=== PATIENT | female | born 1975 | race Caucasian/White ===

== ENCOUNTER 2017-04-30 22:10 | Emergency (ER) | payer MEDICARE, OTHER ==
[~2017-04-30] VITALS: Ht 149.9 cm; Wt 71.7 kg
[~2017-04-30 22:10] MED LIST: AMOX-423 PO; DOCU-144 PO; FERR-57 PO; HYDR-1189 PO
--- NOTE | 2017-04-30 22:16 | NUR ---
Patient to ER bed 4 to gown for evaluation. Side rails up. Report given to Edgardo VIEIRA.
--- NOTE | 2017-04-30 22:18 | NUR ---
ED ADJUNCT PSYCHOLOGY INSTRUCTOR Bagley at bedside for medical evaluation.
[2017-04-30 22:20] VITALS: BP_SYST 126
--- NOTE | 2017-04-30 22:20 | NUR ---
Patient arrived to ED a/o x 4 with complaint of sore throat x 3 days. Patient reports pain 5/10 with increased pain on swallowing. Patient presents with a low grade fever. Denies N/V. Denies SOB. Reports generalized body aches and feeling tired x 3 days. Does not appear in immediate distress. Daughter at bedside. Will continue to monitor.
--- NOTE | 2017-04-30 22:30 | NUR ---
Medicated per MD orders. IVF infusing with no s/s of infiltration at this time. Will continue to monitor.
[2017-04-30] MEDS ORDERED: ACETAMINOPHEN 500 MG TABLET PO ONE (22:45)
[2017-04-30] MEDS ORDERED: NACL 0.9% 1,000 ML IV ONE (22:45)
[2017-04-30] MEDS ORDERED: KETOROLAC TROMETHAMINE 30 MG VIAL IVP ONE (22:45)
--- NOTE | 2017-04-30 23:00 | NUR ---
Patient resting quietly. No acute distress noted. Vital signs within normal range.
[2017-04-30 23:08] LABS: BILIRUBIN,URINE NEGATIVE (NEGATIVE); BLOOD, URINE NEGATIVE (NEGATIVE); CLARITY/URINE CLEAR (CLEAR); COLOR,URINE YELLOW (YELLOW); GLUCOSE,URINE NEGATIVE (NEGATIVE); KETONES,URINE NEGATIVE (NEGATIVE); LEUKOCYTE ESTERASE ,URINE NEGATIVE (NEGATIVE); NITRITE, URINE NEGATIVE (NEGATIVE); PH,URINE 7.5 (5.0-8.0); PROTEIN URINE NEGATIVE (NEGATIVE); UROBILINOGEN,URINE 0.2 (0.2-1.0)
[2017-04-30] MEDS ORDERED: KETOROLAC TROMETHAMINE 30 MG VIAL ONE (23:08)
[2017-04-30] MEDS ORDERED: ACETAMINOPHEN 500 MG TABLET ONE (23:08)
--- NOTE | 2017-04-30 23:30 | NUR ---
Courtney birmingham in EDM - 05/01/17 at 0527 by [email or web address] ED YOANNA Bagley at bedside for medical evaluation.
--- NOTE | 2017-04-30 23:30 | NUR ---
ED GROUND SUPPORT AGENT Bagley at bedside for patient reassessment.
[2017-04-30 23:31] LABS: BARBITURATE, URINE NEGATIVE (NEG <=200); BENZODIAZEPINE, URINE NEGATIVE (NEG <=150); CANNABINOID, URINE NEGATIVE (NEG <=50); COCAINE, URINE NEGATIVE (NEG <=150); METHAMPHETAMINES SCREEN,URINE NEGATIVE (NEG <=500); OPIATE, URINE NEGATIVE (NEG <=100); PHENCYCLIDINE SCREEN,URINE NEGATIVE (NEG <=25); UR TRICYCLIC ANTIDEPRESSANTS NEGATIVE (NEG <=300); URINE AMPHETAMINE NEGATIVE (NEG <=500); URINE METHADONE NEGATIVE (NEG <=200); URINE OXYCODONE SCREEN NEGATIVE (NEG <=100); URINE PROPOXYPHENE SCREEN NEGATIVE (NEG <=300)
[2017-05-01] VITALS: BP_SYST 130
--- NOTE | 2017-05-01 | NUR ---
Patient given written and verbal discharge instructions and verbalizes understanding. ER MD discussed with patient the results and treatment provided. Patient in stable condition. ID arm band removed. IV catheter removed intact and dressing applied, no active bleeding. Rx of prednisone and motrin given. Patient educated on pain management and to follow up with PMD. Pain Scale 2/10 tolerable for patient. Opportunity for questions provided and answered.
== END 2017-05-01 | disposition home or self-care (01) ==
LOC: SED 22:10
DX: J02.9 Acute pharyngitis, unspecified (principal)
CPT/HCPCS: 80307; 81003; 96361; 96374; 99284; J1885; J7030